=== PATIENT | male | born 1985 | race African-American/Black ===

== ENCOUNTER 2018-08-30 15:45 | Emergency (ER) | payer OTHER ==
[~2018-08-30] VITALS: Ht 193 cm; Wt 104.5 kg
--- NOTE | 2018-08-30 17:14 | REP ---
Chest two views HISTORY: Rule out mass Comparison: None The lungs are clear. There is a right suprahilar paratracheal and mediastinal mass. The heart is normal in size. The pulmonary vasculature is normal in appearance. The bony structure is intact. IMPRESSION: Right suprahilar paratracheal mediastinal mass. CT of the chest is recommended for further evaluation Electronically Signed by Mitch Power MD 08/30/2018 05:06 P
[2018-08-30 17:20] LABS: HEMATOCRIT 44.2 % (42.0-52.0); HEMOGLOBIN 14.2 g/dl (13.5-17.5); MEAN CORPUSCULAR HGB CONC 32.1 g/dl (32.0-36.5); MEAN CORPUSCULAR VOLUME 90.4 fl (80.0-96.0); PLATELET COUNT, AUTOMATED 297 10^3/uL (150-450); RED BLOOD COUNT 4.89 10^6/uL (4.30-6.10); WHITE BLOOD COUNT 4.4 10^3/uL (4.0-10.0)
[2018-08-30 17:48] LABS: BLOOD UREA NITROGEN 10 MG/DL (7-18); CALCIUM LEVEL 9.1 MG/DL (8.5-10.1); CARBON DIOXIDE LEVEL 30 MEQ/L (21-32); CHLORIDE LEVEL 102 MEQ/L (98-107); GLOMERULAR FILTRATION RATE > 60.0 (>60); GLUCOSE, FASTING 96 MG/DL (70-100); POTASSIUM SERUM 4.6 MEQ/L (3.5-5.1); SODIUM LEVEL 137 MEQ/L (136-145)
[2018-08-30] MEDS ORDERED: ISOVUE-370 76% 100ML VIAL (Q9967) As Ordered ONE (17:54)
--- NOTE | 2018-08-30 19:11 | REPVR ---
EXAM: CT Chest With Contrast EXAM DATE/TIME: 08/30/2018 4:44 PM CLINICAL HISTORY: 33 years old, male; Abnormal findings; Abnormal radiologic exam of lung or chest; Additional info: ? Lymphoma TECHNIQUE: Axial computed tomography images of the chest with intravenous contrast. All CT scans at this facility use at least one of these dose optimization techniques: automated exposure control; mA and/or kV adjustment per patient size (includes targeted exams where dose is matched to clinical indication); or iterative reconstruction. Coronal and sagittal reformatted images were created and reviewed. MIP reconstructed images were created and reviewed. CONTRAST: Contrast Material: 100 ml of ISOVUE 370; Contrast Route: IV COMPARISON: CR Chest, 2 view PA, Lat 08/30/2018 4:24 PM FINDINGS: Lungs: Normal. No consolidation. No masses. No nodules. No interstitial fibrosis. Pleural space: Normal. No pneumothorax. No pleural effusion. Heart: Normal. No cardiomegaly. No pericardial effusion. Aorta: Normal. No aortic aneurysm. Lymph nodes: There is extensive mediastinal adenopathy. This is most extensive in the right paratracheal and anterior mediastinal regions. There is a right paratracheal lymph node with short axis of 2.7 cm. There is an anterior mediastinal lymph node with short axis of 2.8 cm. There is a pretracheal and short axis and 15 mm. A second anterior mediastinal lymph node has a short axis of 2.2 cm. There are multiple smaller anterior mediastinal and prevascular lymph nodes. There is a right hilar lymph node with short axis of 16 mm. There slightly smaller left hilar lymph nodes. There is a left lower cervical lymph node on the most superior image with a short axis of 2.6 cm. Contralaterally there is a lymph node with short axis of 2 cm. Bones/joints: Unremarkable. No acute fracture. No osseous lesions. Soft tissues: Unremarkable. IMPRESSION: There is mediastinal, hilar and lower neck adenopathy. Possible diagnoses include malignancy such as lymphoma and inflammatory diseases such as sarcoid.. Electronically signed by: Des Lundberg On 08/30/2018 19:11:16 PM
[2018-08-30 20:29] VITALS: BP 146/87
--- NOTE | 2018-09-01 15:58 | ED PDOC ---
Post-Departure Follow-Up [facility] faxed formal report of cxr for fu for appt. Fiordaliza Mathew MD Sep 01, 2018 15:58
== END 2018-08-30 20:30 | disposition home or self-care (01) ==
LOC: M ED 15:45
DX: R59.0 Localized enlarged lymph nodes (principal); Z88.0 Allergy status to penicillin
CPT/HCPCS: 36415; 71046; 71260; 80048; 85027; 99283; Q9967